=== PATIENT | male | born 1950 | race Caucasian/White ===

== ENCOUNTER 2021-08-11 09:55 | Observation (INO) | payer MEDICARE, OTHER ==
[2021-08-11] VITALS (12 sets, daily range): BP systolic 124–164; BP diastolic 62–97
[~2021-08-11] VITALS: Ht 180.3 cm; Wt 119.0 kg
[2021-08-11] MEDS: NICOTINE 21MG/24HR 1 EA TRANSDERMAL TD SCH (09:00)
[2021-08-11] MEDS ORDERED: ISOVUE-370 76% 100ML VIAL As Ordered ONE (10:04)
[2021-08-11] MEDS ORDERED: ALTEPLASE 100MG VIAL IV ONE (10:30)
[2021-08-11 10:39] LABS: BASO # 0.1 10^3/uL (0.0-0.2); BASO % 0.8 % (0.0-1.0); EOS # 0.2 10^3/uL (0.0-0.5); EOS % 2.1 % (0.0-3.0); HEMOGLOBIN 14.8 g/dl (13.5-17.5); LYMPH # 1.1 10^3/uL (1.5-5.0); LYMPH % 11.9 % (24.0-44.0); MEAN CORPUSCULAR HEMOGLOBIN 30.6 pg (27.0-33.0); MEAN CORPUSCULAR HGB CONC 32.9 g/dl (32.0-36.5); MONO # 0.6 10^3/uL (0.0-0.8); MONO % 6.6 % (2.0-8.0); NEUTROPHILS # 7.1 10^3/uL (1.5-8.5); NEUTROPHILS % 78.1 % (36.0-66.0); PLATELET COUNT, AUTOMATED 246 10^3/uL (150-450); RED BLOOD COUNT 4.84 10^6/uL (4.30-6.10); WHITE BLOOD COUNT 9.1 10^3/uL (4.0-10.0)
[2021-08-11 10:50] LABS: INR 1.04
[2021-08-11] MEDS ORDERED: ALTEPLASE RECOMBINANT 81 MG in IV 1 EA IV ONE (10:50)
[2021-08-11 10:51] LABS: PARTIAL THROMBOPLASTIN TIME 32.1 SECONDS (25.9-37.0)
[2021-08-11 11:02] LABS: BLOOD UREA NITROGEN 18 MG/DL (7-18); CALCIUM LEVEL 8.7 MG/DL (8.8-10.2); CARBON DIOXIDE LEVEL 26 MEQ/L (21-32); CHLORIDE LEVEL 110 MEQ/L (98-107); CREATININE FOR GFR 0.85 MG/DL (0.70-1.30); GLOMERULAR FILTRATION RATE > 60.0 (>42); GLUCOSE, FASTING 92 MG/DL (70-100); POTASSIUM SERUM 4.2 MEQ/L (3.5-5.1); SODIUM LEVEL 142 MEQ/L (136-145)
[2021-08-11 11:19] LABS: RSV AMPLIFICATION NEGATIVE (NEGATIVE)
[2021-08-11] MEDS ORDERED: SODIUM CHLORIDE 0.9% 50 ML IV ONE (11:30)
[2021-08-11] MEDS ORDERED: TAMS1CAP17 PO (12:31)
[2021-08-11] MEDS ORDERED: AMLO1TAB24 PO (12:31)
[2021-08-11] MEDS ORDERED: GABA-1171 PO (12:31)
[2021-08-11] MEDS ORDERED: OMEP40CA5 PO (12:31)
[2021-08-11] MEDS ORDERED: ALBU8.5H INH (12:31)
[2021-08-11] MEDS ORDERED: AMOX875T2 PO (12:44)
[2021-08-11] MEDS ORDERED: HOME MED LIST COMPLETE! XX SCH (13:05)
[2021-08-11] MEDS ORDERED: MOM 30ML SUSPENSION UDC PO PRN (14:35)
[2021-08-11] MEDS ORDERED: ACETAMINOPHEN TAB 650MG DOSE (2X325MG) PO PRN (14:35)
[2021-08-11] MEDS ORDERED: MAALOX 30 ML SUSP *UDC PO PRN (14:35)
[2021-08-11 15:43] LABS: CHOLESTEROL LEVEL 202 MG/DL (<200); CHOLESTEROL RISK RATIO 6.312 (<5); HDL CHOLESTEROL 32 MG/DL (>40); LDL CHOLESTEROL 144 MG/DL (<100); NON-HDL-C 170 MG/DL; THYROID STIMULATING HORMONE 0.931 uIU/ML (0.358-3.740); TRIGLYCERIDES LEVEL 131 MG/DL (<150)
[2021-08-11] MEDS ORDERED: GABAPENTIN 100 MG CAP PO PRN (17:40)
[2021-08-11] MEDS: ATORVASTATIN 20 MG TAB PO SCH (19:01)
[2021-08-11] MEDS: DOCUSATE SODIUM 100MG CAPSULE PO SCH (20:14)
[2021-08-12] VITALS (12 sets, daily range): BP systolic 124–151; BP diastolic 65–90
[2021-08-12] MEDS: ATORVASTATIN 20 MG TAB PO SCH (08:25)
[2021-08-12] MEDS: DOCUSATE SODIUM 100MG CAPSULE PO SCH (08:55)
[2021-08-12] MEDS: NICOTINE 21MG/24HR 1 EA TRANSDERMAL TD SCH (08:55)
[2021-08-12] MEDS ORDERED: TAMSULOSIN 0.4 MG CAP PO SCH (09:00)
[2021-08-12] MEDS ORDERED: ASPIRIN 81MG ENTERIC TABLET PO SCH (09:00)
[2021-08-12 10:50] LABS: BASO # 0.1 10^3/uL (0.0-0.2); BASO % 0.6 % (0.0-1.0); EOS # 0.2 10^3/uL (0.0-0.5); EOS % 1.6 % (0.0-3.0); HEMATOCRIT 44.6 % (42.0-52.0); HEMOGLOBIN 14.1 g/dl (13.5-17.5); LYMPH # 1.3 10^3/uL (1.5-5.0); LYMPH % 13.4 % (24.0-44.0); MEAN CORPUSCULAR HEMOGLOBIN 29.9 pg (27.0-33.0); MEAN CORPUSCULAR HGB CONC 31.6 g/dl (32.0-36.5); MEAN CORPUSCULAR VOLUME 94.5 fl (80.0-96.0); MONO # 0.6 10^3/uL (0.0-0.8); MONO % 5.8 % (2.0-8.0); NEUTROPHILS # 7.4 10^3/uL (1.5-8.5); NEUTROPHILS % 78.2 % (36.0-66.0); PLATELET COUNT, AUTOMATED 210 10^3/uL (150-450); RED BLOOD COUNT 4.72 10^6/uL (4.30-6.10); WHITE BLOOD COUNT 9.5 10^3/uL (4.0-10.0)
[2021-08-12 11:16] LABS: BLOOD UREA NITROGEN 15 MG/DL (7-18); CALCIUM LEVEL 8.9 MG/DL (8.8-10.2); CARBON DIOXIDE LEVEL 28 MEQ/L (21-32); CHLORIDE LEVEL 109 MEQ/L (98-107); CREATININE FOR GFR 0.88 MG/DL (0.70-1.30); GLOMERULAR FILTRATION RATE > 60.0 (>42); GLUCOSE, FASTING 154 MG/DL (70-100); POTASSIUM SERUM 3.8 MEQ/L (3.5-5.1); SODIUM LEVEL 140 MEQ/L (136-145)
[2021-08-12] MEDS ORDERED: ASPI-551 PO (11:59)
[2021-08-12] MEDS ORDERED: ATOR1TAB21 PO (11:59)
[2021-08-12] MEDS ORDERED: ASPI81TA26 PO (22:18)
[2021-08-12] MEDS ORDERED: ATOR80TA59 PO (22:19)
== END 2021-08-12 13:34 | disposition home or self-care (01) ==
LOC: M ED 09:55 → EDBD 09:55 → M ED INP 09:56 → UNDOADMOB 14:34 → ENRESERV 15:17 → M PCU 16:01 → M ED INP 16:01
PROVIDERS: ADMIT Internal Medicine; ATTEND Internal Medicine
DX: I63.9 Cerebral infarction, unspecified (principal); R29.703 NIHSS score 3; I10 Essential (primary) hypertension; I71.6 Thoracoabdominal aortic aneurysm, without rupture; N40.0 Benign prostatic hyperplasia without lower urinary tract symptoms; F17.210 Nicotine dependence, cigarettes, uncomplicated; I65.23 Occlusion and stenosis of bilateral carotid arteries; I67.82 Cerebral ischemia; G31.1 Senile degeneration of brain, not elsewhere classified; E78.5 Hyperlipidemia, unspecified; M19.90 Unspecified osteoarthritis, unspecified site; Z79.899 Other long term (current) drug therapy; Z79.82 Long term (current) use of aspirin

== ENCOUNTER 2021-08-12 19:24 | Inpatient (IN) | payer MEDICARE, OTHER ==
[~2021-08-12] VITALS: Ht 180.3 cm; Wt 119.5 kg
[~2021-08-12 19:24] MED LIST: ALBU8.5H INH; AMLO1TAB24 PO; AMOX875T2 PO; ASPI-551 PO; ATOR1TAB21 PO; GABA-1171 PO; OMEP40CA5 PO; TAMS1CAP17 PO
[2021-08-12 20:04] LABS: BASO # 0.1 10^3/uL (0.0-0.2); BASO % 0.7 % (0.0-1.0); EOS # 0.2 10^3/uL (0.0-0.5); EOS % 2.1 % (0.0-3.0); HEMATOCRIT 45.9 % (42.0-52.0); HEMOGLOBIN 14.8 g/dl (13.5-17.5); LYMPH # 1.6 10^3/uL (1.5-5.0); MEAN CORPUSCULAR HGB CONC 32.2 g/dl (32.0-36.5); MEAN CORPUSCULAR VOLUME 93.1 fl (80.0-96.0); MONO # 0.7 10^3/uL (0.0-0.8); MONO % 6.4 % (2.0-8.0); NEUTROPHILS % 75.4 % (36.0-66.0); PLATELET COUNT, AUTOMATED 256 10^3/uL (150-450); RED BLOOD COUNT 4.93 10^6/uL (4.30-6.10); WHITE BLOOD COUNT 10.6 10^3/uL (4.0-10.0)
[2021-08-12 20:14] LABS: INR 1.08; PROTHROMBIN TIME 14.4 SECONDS (12.7-14.5)
[2021-08-12] MEDS ORDERED: ASPI81TA26 PO (22:18)
[2021-08-12] MEDS ORDERED: ATOR80TA59 PO (22:19)
[2021-08-12] MEDS ORDERED: HOME MED LIST COMPLETE! XX SCH (22:25)
[2021-08-13] MEDS ORDERED: CLOPIDOGREL 300 MG TAB (PLAVIX) PO STA (00:39)
[2021-08-13] MEDS ORDERED: MAALOX 30 ML SUSP *UDC PO PRN (01:15)
[2021-08-13] MEDS ORDERED: ALBUTEROL 90 MCG/ACT 8GM HFA INHALER INH PRN (01:15)
[2021-08-13] MEDS ORDERED: GABAPENTIN 100 MG CAP PO PRN (01:15)
[2021-08-13] MEDS ORDERED: MOM 30ML SUSPENSION UDC PO PRN (01:15)
[2021-08-13 02:25] VITALS: BP 149/98
[2021-08-13 04:00] VITALS: BP 132/86
[2021-08-13] MEDS ORDERED: NS 0.45% 1,000 ML IV SCH (05:40)
[2021-08-13 08:00] VITALS: BP 133/86
[2021-08-13] MEDS: ATORVASTATIN 20 MG TAB PO SCH (08:53)
[2021-08-13] MEDS: TAMSULOSIN 0.4 MG CAP PO SCH (08:53)
[2021-08-13] MEDS: OMEPRAZOLE 20MG CAP PO SCH (08:54)
[2021-08-13] MEDS: CLOPIDOGREL 75 MG TAB PO SCH (08:54)
[2021-08-13] MEDS: ASPIRIN 81MG ENTERIC TABLET PO SCH (08:54)
[2021-08-13] MEDS ORDERED: amLODIPine 5 MG TAB PO SCH (09:00)
[2021-08-13 12:00] VITALS: BP 132/84
[2021-08-13 16:00] VITALS: BP 130/80
[2021-08-13] MEDS: ACETAMINOPHEN TAB 650MG DOSE (2X325MG) PO PRN (16:13)
[2021-08-13 20:00] VITALS: BP 137/84
[2021-08-14] VITALS (8 sets, daily range): BP systolic 136–160; BP diastolic 52–108
[2021-08-14 06:23] LABS: HEMATOCRIT 42.7 % (42.0-52.0); HEMOGLOBIN 14.2 g/dl (13.5-17.5); MEAN CORPUSCULAR HEMOGLOBIN 30.8 pg (27.0-33.0); MEAN CORPUSCULAR HGB CONC 33.3 g/dl (32.0-36.5); MEAN CORPUSCULAR VOLUME 92.6 fl (80.0-96.0); PLATELET COUNT, AUTOMATED 225 10^3/uL (150-450); RED BLOOD COUNT 4.61 10^6/uL (4.30-6.10); WHITE BLOOD COUNT 7.7 10^3/uL (4.0-10.0)
[2021-08-14 06:54] LABS: BLOOD UREA NITROGEN 13 MG/DL (7-18); CALCIUM LEVEL 8.8 MG/DL (8.8-10.2); CARBON DIOXIDE LEVEL 28 MEQ/L (21-32); CHLORIDE LEVEL 110 MEQ/L (98-107); CREATININE FOR GFR 0.89 MG/DL (0.70-1.30); GLOMERULAR FILTRATION RATE > 60.0 (>42); GLUCOSE, FASTING 93 MG/DL (70-100); POTASSIUM SERUM 4.2 MEQ/L (3.5-5.1); SODIUM LEVEL 142 MEQ/L (136-145)
[2021-08-14] MEDS: ATORVASTATIN 20 MG TAB PO SCH (08:11)
[2021-08-14] MEDS: OMEPRAZOLE 20MG CAP PO SCH (08:11)
[2021-08-14] MEDS: CLOPIDOGREL 75 MG TAB PO SCH (08:12)
[2021-08-14] MEDS: TAMSULOSIN 0.4 MG CAP PO SCH (08:12)
[2021-08-14] MEDS: ASPIRIN 81MG ENTERIC TABLET PO SCH (08:12)
[2021-08-14] MEDS: ACETAMINOPHEN TAB 650MG DOSE (2X325MG) PO PRN (11:06)
[2021-08-14] MEDS ORDERED: CETACAINE SPRAY 5GM As Ordered ONE (16:26)
[2021-08-14] MEDS ORDERED: propofoL 200 MG/20 ML VIAL As Ordered ONE (16:30)
[2021-08-14] MEDS ORDERED: LIDOCAINE 2% 100MG/5ML SDV (FOR ANES.) As Ordered ONE (16:30)
[2021-08-14] MEDS ORDERED: fentaNYL 100 MCG/2 ML INJECTION As Ordered ONE (16:31)
[2021-08-14] MEDS ORDERED: MIDAZOLAM INJ 2MG/2ML VIAL (J2250 PER 1MG) As Ordered ONE (16:31)
[2021-08-14] MEDS ORDERED: ONDANSETRON 4MG/2ML VIAL IV PRN (17:45)
[2021-08-14] MEDS ORDERED: LR 1,000 ML IV SCH (17:45)
[2021-08-14] MEDS ORDERED: amLODIPine 5 MG TAB PO ONE (19:45)
[2021-08-15] VITALS: BP 131/82
[2021-08-15] MEDS: ACETAMINOPHEN TAB 650MG DOSE (2X325MG) PO PRN (00:03)
[2021-08-15 04:00] VITALS: BP 153/93
[2021-08-15] MEDS: CLOPIDOGREL 75 MG TAB PO SCH (08:25)
[2021-08-15] MEDS: ASPIRIN 81MG ENTERIC TABLET PO SCH (08:25)
[2021-08-15] MEDS: TAMSULOSIN 0.4 MG CAP PO SCH (08:26)
[2021-08-15] MEDS: OMEPRAZOLE 20MG CAP PO SCH (08:26)
[2021-08-15] MEDS: ATORVASTATIN 20 MG TAB PO SCH (08:26)
[2021-08-15] MEDS ORDERED: APIXABAN 5 MG TAB (ELIQUIS) PO SCH (09:00)
[2021-08-15 09:15] VITALS: BP 134/84
[2021-08-15] MEDS ORDERED: ATOR80TA59 PO (09:51)
[2021-08-15] MEDS ORDERED: ELIQ5TAB PO ×2 (09:51→13:28)
[2021-08-15 12:03] LABS: HEMATOCRIT 45.9 % (42.0-52.0); HEMOGLOBIN 14.9 g/dl (13.5-17.5); MEAN CORPUSCULAR HGB CONC 32.5 g/dl (32.0-36.5); MEAN CORPUSCULAR VOLUME 92.5 fl (80.0-96.0); PLATELET COUNT, AUTOMATED 256 10^3/uL (150-450); RED BLOOD COUNT 4.96 10^6/uL (4.30-6.10); WHITE BLOOD COUNT 6.9 10^3/uL (4.0-10.0)
[2021-08-15 12:31] LABS: BLOOD UREA NITROGEN 15 MG/DL (7-18); CALCIUM LEVEL 9.4 MG/DL (8.8-10.2); CARBON DIOXIDE LEVEL 28 MEQ/L (21-32); CHLORIDE LEVEL 107 MEQ/L (98-107); CREATININE FOR GFR 0.88 MG/DL (0.70-1.30); GLOMERULAR FILTRATION RATE > 60.0 (>42); GLUCOSE, FASTING 90 MG/DL (70-100); SODIUM LEVEL 141 MEQ/L (136-145)
== END 2021-08-15 13:45 | disposition home health service (06) | DRG 66 ==
LOC: M ED 19:24 → M ED INP 08-13 01:14 → M PCU 08-13 02:27
PROVIDERS: ADMIT Family Medicine; ATTEND Internal Medicine
PROC: B246ZZ4 Ultrasonography of Right and Left Heart, Transesophageal (ICD-10-PCS; principal; 2021-08-14 16:30)
DX: I63.9 Cerebral infarction, unspecified (principal); R29.703 NIHSS score 3; I10 Essential (primary) hypertension; I71.6 Thoracoabdominal aortic aneurysm, without rupture; N40.0 Benign prostatic hyperplasia without lower urinary tract symptoms; F17.210 Nicotine dependence, cigarettes, uncomplicated; I65.23 Occlusion and stenosis of bilateral carotid arteries; E78.5 Hyperlipidemia, unspecified; M19.90 Unspecified osteoarthritis, unspecified site; Z79.899 Other long term (current) drug therapy; Z79.82 Long term (current) use of aspirin; Z79.2 Long term (current) use of antibiotics; E66.9 Obesity, unspecified